=== PATIENT | female | born 1940 | race Caucasian/White ===

== ENCOUNTER → 2016-10-22 | Outpatient (CLI) | payer MEDICARE, OTHER ==
[~2016-10-22] MED LIST: ALPR0.254; AMI10; FLUO20CA38; PANT40TA3
--- NOTE | 2016-10-22 17:39 | HKNOTE ---
DATE OF SERVICE: 10/22/2016 SUBJECTIVE: The patient comes in requesting injections into both knees. 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 She is going on a vacation to [facility] in a few weeks. PHYSICAL EXAMINATION: On physical examination, temperature 98.1. Unable to get blood pressure read ings, of course she has had bilateral breast cancer surgery. Both knees clinically have degenerativ e changes MANAGEMENT: Under sterile condition, given 1 unit of Monovisc into each knee. She will be seen aga in as necessary. Dictated By: FABIAN ALANIS/NTS Conf#: [id number] DID#: [id number]
== END | disposition home or self-care (01) ==
LOC: HKI 13:49
DX: M17.0 Bilateral primary osteoarthritis of knee (principal)
CPT/HCPCS: 20610; G0463; J7327

== ENCOUNTER → 2016-12-04 | Outpatient (CLI) | payer MEDICARE, OTHER ==
--- NOTE | 2016-12-04 18:18 | HKNOTE ---
DATE OF SERVICE: 12/04/2016 SUBJECTIVE: The patient comes in requesting repeat cortisone injections into both knees. She is go ing on vacation to [place] next week. I promised her that she could come in for an injection just pr ior to her trip. PHYSICAL EXAMINATION: Today, her temperature is normal. The knees are unchanged since the last vis it. MANAGEMENT: Under sterile conditions, she was given injection of 2 mL of Kenalog and 6 mL of 2% lid ocaine into both knees and she will be seen again as necessary. Note that we again briefly discusse d knee replacement surgery. Dictated By: FABIAN ALANIS/MADELEINE Conf#: [id number] DID#: [id number]
== END | disposition home or self-care (01) ==
LOC: HKI 13:34
DX: M17.0 Bilateral primary osteoarthritis of knee (principal)
CPT/HCPCS: 20610; G0463

== ENCOUNTER → 2017-09-22 | Outpatient (CLI) | END | disposition home or self-care (01) ==